=== PATIENT | female | born 1955 | race Caucasian/White ===

== ENCOUNTER → 2017-12-04 | Outpatient (CLI) | payer OTHER ==
[~2017-12-04] MED LIST: AMANTADINE 100100 MG PO; ASPIRIN325 PO; ATORVASTATIN CA40 MG PO; CYMBALTA60 MG PO; DECADRON4 MG PO; FISH OIL 1,001000 M2 PO; HYDROCHLOROTH12.5 M1 PO; IMITREX 25 MG T25 MG PO; LASIX 40 MG TAB40 M2 PO; LOPRESSOR25 PO; MIRALAX17 GM PO; NEURONTIN 300300 M1 PO; NORCO 10-325 T1 EACH PO; OMEPRAZOLE40 MG PO; OXYCODONE HCL 55 MG PO; POTASSIUM20 PO; REGLAN 10 MG TA10 MG PO; SEROQUEL 50 MG50 MG PO; SERTRALINE HCL50 MG PO; SYNTHROID75 MCG PO; TOPAMAX50 MG PO; TOPROL XL25 MG PO; VALIUM5 MG PO; VERAPAMIL E.R240 M1 PO; VITAMIN D1000 UNI1 PO; VITAMINC500 PO; VOLTAREN GEL 1100 G2 TOP; XANAX1 MG PO
== END ==
LOC: M.RAD 10:54
DX: S92.812A Other fracture of left foot, initial encounter for closed fracture (principal); X58.XXXA Exposure to other specified factors, initial encounter; Y93.89 Activity, other specified; Y92.89 Other specified places as the place of occurrence of the external cause; Y99.8 Other external cause status

== ENCOUNTER 2018-03-08 14:37 | Inpatient (IN) | payer OTHER ==
[~2018-03-08] VITALS: Ht 162.6 cm; Wt 119.7 kg
[2018-03-08 14:42] VITALS: BP 141/119
[2018-03-08 15:02] VITALS: BP 128/87
[2018-03-08 15:06] LABS: ABSOLUTE BASOPHILS 0.1 thou/uL (0.0-0.2); ABSOLUTE EOSINOPHILS 0.2 thou/uL (0.0-0.7); ABSOLUTE LYMPHOCYTES 2.6 thou/uL (0.8-5.3); ABSOLUTE MONOCYTES 0.5 thou/uL (0.0-1.2); ABSOLUTE NEUTROPHILS 3.4 thou/uL (1.6-8.1); EOSINOPHILS 3.6 %; HEMATOCRIT 36.8 % (37.0-47.0); HEMOGLOBIN 12.3 gm/dL (12.0-15.0); LYMPHOCYTES 37.7 %; MCH 30.3 pg (26.0-34.0); MCHC 33.4 g/dL (28.0-37.0); MCV 90.8 fL (80.0-100.0); MONOCYTES 7.3 %; MPV 6.8 fl. (7.2-11.1); NUCLEATED RBCS 0 /100WBC; PLATELET COUNT* 276 thou/uL (150-400); POLYS 50.4 %; RBC 4.05 mil/uL (4.20-5.00); RDW-CV 15.1 % (10.5-14.5); WBC 6.8 thou/uL (4.0-11.0)
[2018-03-08 15:14] LABS: ANION GAP 6 mmol/L (7-16); BUN 11 mg/dL (7-18); CALCIUM 8.8 mg/dL (8.5-10.1); CHLORIDE 105 mmol/L (98-107); CO2 28 mmol/L (21-32); CREATININE 0.9 mg/dL (0.6-1.3); GLUCOSE 108 mg/dL (70-99); POTASSIUM 3.6 mmol/L (3.5-5.1); SODIUM 139 mmol/L (136-145)
[2018-03-08 15:21] LABS: ALBUMIN 3.2 g/dL (3.4-5.0); ALKALINE PHOSPHATASE 73 U/L (46-116); SGOT 16 U/L (15-37); SGPT 30 U/L (30-65); TOTAL BILIRUBIN 0.3 mg/dL (<0.1-1.0); TOTAL PROTEIN 6.7 g/dL (6.4-8.2); TROPONIN-I LEVEL <0.06 ng/mL (<0.06)
[2018-03-08] MEDS ORDERED: XANAX1 MG PO ×2 (15:22→22:23)
[2018-03-08] MEDS ORDERED: ATORVASTATIN CA40 MG PO (15:23)
[2018-03-08] MEDS ORDERED: POTASSIUM20 PO (15:23)
[2018-03-08] MEDS ORDERED: NEURONTIN 300300 M1 PO (15:24)
[2018-03-08] MEDS ORDERED: OMEPRAZOLE40 MG PO (15:24)
[2018-03-08] MEDS ORDERED: VERAPAMIL E.R240 M1 PO (15:25)
[2018-03-08] MEDS ORDERED: LOPRESSOR25 PO (15:25)
[2018-03-08] MEDS ORDERED: SYNTHROID75 MCG PO (15:25)
[2018-03-08] MEDS ORDERED: SEROQUEL 50 MG50 MG PO (15:26)
[2018-03-08] MEDS ORDERED: AMANTADINE 100100 MG PO (15:26)
[2018-03-08] MEDS ORDERED: TOPAMAX50 MG PO (15:27)
[2018-03-08] MEDS ORDERED: SERTRALINE HCL50 MG PO (15:27)
[2018-03-08] MEDS ORDERED: CYMBALTA60 MG PO (15:27)
[2018-03-08] MEDS ORDERED: ASPIRIN325 PO (15:28)
[2018-03-08] MEDS ORDERED: LASIX 40 MG TAB40 M2 PO (15:28)
[2018-03-08] MEDS ORDERED: HYDROCHLOROTH12.5 M1 PO (15:28)
[2018-03-08] MEDS ORDERED: OXYCODONE HCL 55 MG PO (15:30)
[2018-03-08] MEDS ORDERED: VALIUM5 MG PO (15:31)
[2018-03-08] MEDS ORDERED: REGLAN 10 MG TA10 MG PO (15:31)
[2018-03-08] MEDS ORDERED: MIRALAX17 GM PO (15:32)
[2018-03-08] MEDS ORDERED: FISH OIL 1,001000 M2 PO (15:33)
[2018-03-08] MEDS ORDERED: VOLTAREN GEL 1100 G2 TOP (15:33)
[2018-03-08] MEDS ORDERED: VITAMIN D1000 UNI1 PO (15:33)
[2018-03-08] MEDS ORDERED: VITAMINC500 PO (15:33)
[2018-03-08 18:53] VITALS: BP 105/55
[2018-03-08 18:59] VITALS: BP 118/61
--- NOTE | 2018-03-08 19:35 | NUR ---
PT. ARRIVED TO UNIT AT APPROX. 1845. PT. A/OX4, VSS, MONITOR PLACED. PT. DENIES CURRENT PAIN EXCEPT HEADACHE. STATES SHE JUST FEELS "OFF" TODAY. ADMISSION HISTORY COMPLETED. NIH COMPLETED WITH SCORE OF 3. SWALLOW EVAL COMPLETED WITH NO DEFICIT NOTED. PT. ORIENTED TO ROOM/PROCEDURES. UPDATED ON PLAN OF CARE TO INCLUDE MRI. REPORT GIVEN TO NOC MANAS HARRIS TO COMPLETE ADMISSION PROCESS.
[2018-03-08 20:00] VITALS: BP 104/47
[2018-03-08 21:21] LABS: AMP/METHAMP Negative (Negative); BARBITURATES Negative (Negative); BENZODIAZEPINES POSITIVE (Negative); COCAINE Negative (Negative); METHADONE Negative (Negative); OPIATES POSITIVE (Negative); PCP Negative (Negative); THC Negative (Negative)
[2018-03-08 21:36] LABS: HEMOGLOBIN 11.8 gm/dL (12.0-15.0)
[2018-03-08 21:45] LABS: ALBUMIN 3.1 g/dL (3.4-5.0); CALCIUM 8.2 mg/dL (8.5-10.1); CREATININE 0.8 mg/dL (0.6-1.3); POTASSIUM 3.7 mmol/L (3.5-5.1); TOTAL BILIRUBIN 0.4 mg/dL (<0.1-1.0); TOTAL PROTEIN 6.3 g/dL (6.4-8.2)
[2018-03-08] MEDS ORDERED: TOPROL XL25 MG PO (22:25)
[2018-03-08] MEDS ORDERED: IMITREX 25 MG T25 MG PO (22:30)
[2018-03-08] MEDS ORDERED: NORCO 10-325 T1 EACH PO (22:31)
[2018-03-08] MEDS ORDERED: DECADRON4 MG PO (22:36)
[2018-03-09] VITALS: BP 107/44
[2018-03-09 04:00] VITALS: BP 107/63
--- NOTE | 2018-03-09 05:20 | NUR ---
PATIENT PARTIALLY PROGRESSING TOWARDS GOALS: NIH REMAINS 0-1 DUE TO PARTIAL SENSORY LOSS ON LEFT SIDE. PATIENT NOTED TO HAVE EPISODES OF FORGETFULNESS BUT REORIENTATES SELF AFTER A FEW MOMENTS OF THINKING. PATIENT'S HS MEDS THAT CAN CAUSE SEDATING EFFECTS HELD. HOURLY ROUNDING OBSERVED. CALL LIGHT WITHIN REACH
[2018-03-09 05:35] LABS: ABSOLUTE EOSINOPHILS 0.2 thou/uL (0.0-0.7); ABSOLUTE LYMPHOCYTES 2.7 thou/uL (0.8-5.3); ABSOLUTE MONOCYTES 0.6 thou/uL (0.0-1.2); ABSOLUTE NEUTROPHILS 2.8 thou/uL (1.6-8.1); BASOPHILS 0.4 %; EOSINOPHILS 3.4 %; HEMATOCRIT 34.6 % (37.0-47.0); HEMOGLOBIN 11.3 gm/dL (12.0-15.0); LYMPHOCYTES 42.8 %; MCH 29.9 pg (26.0-34.0); MCHC 32.8 g/dL (28.0-37.0); MCV 91.4 fL (80.0-100.0); MONOCYTES 8.9 %; MPV 7.1 fl. (7.2-11.1); NUCLEATED RBCS 0 /100WBC; PLATELET COUNT* 250 thou/uL (150-400); POLYS 44.5 %; RBC 3.79 mil/uL (4.20-5.00); WBC 6.3 thou/uL (4.0-11.0)
[2018-03-09 06:04] LABS: ANION GAP 7 mmol/L (7-16); BUN 13 mg/dL (7-18); CALCIUM 8.5 mg/dL (8.5-10.1); CHLORIDE 106 mmol/L (98-107); CO2 29 mmol/L (21-32); CREATININE 0.8 mg/dL (0.6-1.3); GLUCOSE 105 mg/dL (70-99); POTASSIUM 3.9 mmol/L (3.5-5.1); SODIUM 142 mmol/L (136-145)
[2018-03-09 06:21] LABS: SERUM ASSESSMENT CLEAR
[2018-03-09 06:22] LABS: CHOLESTEROL 178 mg/dL (<200); HDL CHOLESTEROL 36 mg/dL (>40); LDL CHOLESTEROL 92 mg/dL (<100); TC:HDL 4.9 Ratio (Not establshd); TRIGLYCERIDE 251 mg/dL (<150); VLDL 50 mg/dL (<40)
[2018-03-09 08:00] VITALS: BP 115/51
[2018-03-09 11:15] VITALS: BP 126/55
--- NOTE | 2018-03-09 12:46 | EKG ---
[place] [address] ELECTROCARDIOGRAM REPORT Name: NOHELIA ELIAS Room: [address] ADM IN .R.#: [id number] Admission: 03/08/18 Attend Phys: Vu Portillo MD Discharge: Date of : 57 Report #: [id number] THIS REPORT FOR: //name// [facility] ED Test Date: 2018-03-08 Test Time: 14:43:24 Pat Name: NOHELIA ELIAS Department: Room: [facility] Gender: F Ramp Service Agent: Cathy STEINBERG : 1955 Requested By: Mamadou Flores Order Number: [id number] MD: Daljit Chan Measurements Intervals [place] Rate: 79 P: 26 ND: 171 QRS: -15 QRSD: 94 T: 31 QT: 390 QTc: 448 Interpretive Statements Sinus rhythm Borderline left axis deviation Low voltage, precordial leads RSR' in V1 or V2, probably normal variant Abnormal T, consider ischemia, anterior leads No previous ECG available for comparison Electronically Signed On 03-09-2018 12:46:40 CDT by Daljit Chan [email or web address] <ELECTRONICALLY SIGNED> By: Daljit Chan MD, FACC 03/09/18 1246 1443 1443 Daljit Chan MD, FAC /EPI
--- NOTE | 2018-03-09 14:32 | NUR ---
INITIAL ASSESSMENT: Pt evaluated for d/c planning needs. Reviewed chart and spoke with nurse, PT and pt. Pt is alert and oriented. Pt lives in house with ex-. Pt has knee scooter, walker, cane and grab bars at home. Pt was hospitalized at [facility] in the past, and had home health after hospitalization. Pt does not recacll name of company. Pt plans on returning home on d/c from hospital. WIll remain available to assist as needed.
[2018-03-09 16:00] VITALS: BP 122/68
--- NOTE | 2018-03-09 18:54 | NUR ---
RECEIVED REPORT. ASSUMED CARE OF PT AROUND 0730. PT A&O X4 WITH SOME OCCASIONAL FORGETFULLNESS. ONCOLOGIST IN PLACE TRACING SR WITH NO CHANGES THIS SHIFT. VSS. O2 SAT 96% ON RA. NIH BRIEF SCALE SCORING 0 THIS SHIFT, BUT PT DID HAVE SOME SLIGHT SLURRING OF SPEECH THIS AM THAT HAS SINCE DISSIPATED. AM ASSESSMENT AND VITALS COMPLETED CHARTED. IV TO RIGHT FA INTACT AND SALINE LOCKED. PT EATING AND DRINKING WITHOUT ISSUE. PT UP WITH STANDBY ASSIST TO THE BATHROOM A FEW TIMES THIS SHIFT - PT VOIDING WITHOUT ISSUE. PT COMPLAINED OF HEADACHE PAIN THIS AM THAT WAS MANAGED WITH PO PAIN MEDICATION TO PT RELIEF. PT WAS VISITED THIS SHIFT BY HER GOOD FRIEND AND . NEURO WORK UP IN PROGRESS. PT SEEN BY NEUROLOGY. U/S CAROTIDS COMPLETED. ALL NEEDS MET AT THIS TIME. PT CURRENTLY WATCHING TV IN BED. CALL LIGHT IS WITHIN REACH. HOURLY ROUNDING PERFORMED. FALL PRECAUTIONS IN PLACE. WCTM FOR DURATION OF SHIFT.
[2018-03-09 20:00] VITALS: BP 150/73
[2018-03-09 21:06] LABS: GLYCOHEMOGLOBIN (HGB A1C) 5.7 % (4.8-5.6)
[2018-03-10] VITALS: BP 112/39
[2018-03-10 04:00] VITALS: BP 113/57
--- NOTE | 2018-03-10 06:50 | NUR ---
PATIENT APPEARS MORE ALERT THIS SHIFT AND LESS HESITATION WITH SPEECH. NIH REMAINS 0 THROUGHOUT SHIFT. PATIENT HAS RESTED WELL WITH PAIN RELIEF FROM PO MEDS AND ICE PACK. HOURLY ROUNDING OBSERVED. CALL LIGHT WITHIN REACH
[2018-03-10 08:00] VITALS: BP 117/63
[2018-03-10 12:00] VITALS: BP 126/59
[2018-03-10 16:00] VITALS: BP 124/54
[2018-03-10 16:40] VITALS: BP 124/54
--- NOTE | 2018-03-10 17:42 | NUR ---
RECEIVED REPORT. ASSUMED CARE OF PT AROUND 0730. PT A&O X4, DROWSY THIS AM, BUT BECAME MORE ALERT SHIFT PROGRESSED. VSS. O2 SAT 92% ON RA. AM ASSESSMENT AND VITALS COMPLETED CHARTED. COUNT TEAM MEMBER IN PLACE TRACING SR WITH NO CHANGES THIS SHIFT. PT HAS REPORTED HEADACHE PAIN AND RIGHT FOOT PAIN THAT HAS BEEN MANAGED WITH PO PAIN MEDICATION AND COLD PACKS, PT EXPERIENCED PARTIAL RELIEF. NIH BRIEF SCALE SCORE OF 1 THIS AM FOR DROWSINESS, SCORE REDUCED TO 0 SHIFT PROGRESSED. PT COMPLETED MRI THIS SHIFT. NEURO SIGNED OFF. PT EATING AND DRINKING WITHOUT ISSUE. ABLE TO HAVE BM THIS SHIFT. VOIDING WITHOUT ISSUE. DISCHARGE ORDERS RECEIVED. DISCHARGE COMPLETED DOCUMENTED. DISCHARGE SUMMARY GONE OVER WITH PT, PT COMMUNICATES UNDERSTANDING. PT AWARE OF FOLLOW UPS WITH PCP AND HER NEUROLOGIST. PT TO PERSUE ECHOCARDIOGRAM AN OUTPATIENT WITH HER PCP. DISCHARGE FULL NIH ASSESSMENT COMPLETED, PT SCORED A 1 FOR MILD DYSARTHRIA. ALL BELONGINGS PACKED AND READY TO SEND WITH THE PT. IV AND COUNT TEAM MEMBER REMOVED. PT CURRENTLY SITTING UP IN BED WAITING FOR HER RIDE. FALL PRECAUTIONS IN PLACE. CALL LIGHT IS WITHIN REACH, HOURLY ROUNDING PERFORMED. WCTM UNTIL PT LEAVES UNIT.
--- NOTE | 2018-04-08 12:29 | CON ---
[facility] [address] [place] [address] CONSULTATION Name: NOHELIA ELIAS Room: [address] IN M.R.#: [id number] Admission: 03/08/18 Attend Phys: Vu Portillo MD Discharge: 03/10/18 Date of : 57 Report #: [id number] THIS REPORT FOR: //name// CC: Vu Wright HISTORY OF PRESENT ILLNESS: The patient is a 62-year-old woman who was admitted from the Emergency Department after it was noted that she had slurring of her speech. The patient has been in physical therapy for rehabilitation after a right foot surgery done several weeks ago. She is walking with a cane or a walker. She had gone to therapy on the day of admission and it was noted that her speech was slurred. She states that she knew what she wanted to say and she could come up with the words pretty much, but the words were just slurred. This was not associated with any other neurological symptoms, for example headache or visual disturbances, no paresthesias of the face. She does have chronic pain in her right foot in the area of the previous surgery. The patient was noted to have slurred speech in the Emergency Department. 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 She denies ever having seizures or strokes in the past. She states that she does have high blood pressure and hyperlipidemia, but denies knowledge of diabetes, although this is contrary to other information from the chart. She does have depression, although she has not seen a psychiatrist, but does have an appointment for her first visit next week. The patient does have a long history of anxiety as well as depression and is on a lot of medications. She also is being treated for a thyroid condition. She has a history of migraine headaches and she is taking Topamax, but when asked if she was taking the Topamax for migraines, she was not sure why she was taking it. The patient is on numerous medications as listed. She is on alprazolam 1 mg t.i.d. for anxiety and had been given Valium by the orthopedic surgeon for muscle spasms, but she states that she has only taken about 5 Valium. She is on atorvastatin 40 mg, gabapentin 300 mg t.i.d., verapamil, metoprolol, Levothroid 75 mcg, Seroquel 50 mg at night, Cymbalta 60 mg daily, sertraline 50 mg daily, hydrochlorothiazide, Lasix, OxyIR 5, Reglan 10 mg b.i.d., diclofenac, amantadine 100 mg b.i.d. and Topamax. 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 The patient has seen Neurology at with severe right foot and leg pain and has been followed by Dr. Ramos at . Her primary care is Dr. Wright. The patient was admitted. She states that she got a good night's sleep last night, woke up feeling refreshed and she states that the slurred speech has [facility] [address] [place] [address] CONSULTATION Name: NOHELIA ELIAS Room: [address] IN M.R.#: [id number] Admission: 03/08/18 Attend Phys: Vu Portillo MD Discharge: 03/10/18 Date of : 57 Report #: [id number] resolved, although she is complaining of a bit of a headache at the present time. FAMILY HISTORY: The patient does not know her father. Her mother of complications of a motor vehicle accident. SOCIAL HISTORY: She is not a smoker. She has several children who are in good health. She does not use alcohol. REVIEW OF SYSTEMS: She denies systemic complaints of fever or chills. She denies visual disturbances or problems with hearing loss. She has no chest pain or palpitations. No shortness of breath or cough. She does complain of a lot of nausea for which she takes Reglan. She denies urinary problems. She complains of a lot of foot pain as well as leg pain and back pain. She complains of anxiety and depression as well. She denies easy bleeding or bruising or rashes. PHYSICAL EXAMINATION: VITAL SIGNS: Blood pressure 126/55, pulse 68, temperature 36.8. GENERAL APPEARANCE: The patient is an overweight woman, in no apparent distress, who appears her stated age. NECK: Supple. No carotid bruits are heard. EXTREMITIES: There is mild swelling of both feet at the ankles and there is a large well-healed scar about the right lower leg and foot. NEUROLOGIC: She is alert and oriented with normal memory and speech. On cranial nerve testing, the pupils are equally round and reactive. Extraocular movements are full without nystagmus. Visual campbell are full to confrontation. Facial sensation and mobility were normal. Tongue was large and red, but protruded normally. Motor testing revealed full power in her arms and legs with the exception of mild weakness of the right foot in the area of the surgery. There was a mild tremor of her arms outstretched. She had no rigidity or bradykinesia suggestive of Parkinson disease. Sensory testing was intact to light touch, pin and vibration. On coordination testing, she did rapid alternating movements well; however, her ujsxnx-ee-pnph testing was done slowly and somewhat clumsily bilaterally. She did better on bmzu-yi-voeq. Reflexes were 1+ at the knees, absent at the right ankle, trace at the left ankle. Toes were downgoing bilaterally. The patient was able to stand up. Her gait was wide based and antalgic, favoring the right foot. LABORATORY DATA: Initial CT scan of the head showed frontal atrophy bilaterally. The CT was done without contrast. No other abnormalities were noted. Lab tests showed hemoglobin of 11.3, hematocrit 34.6, white count 6300, platelet count 250,000, MCV 91.4. Sed rate 19. Her glucose was 115. Hemoglobin A1c is pending. Liver function tests were normal. CK was 33. Cholesterol 178, LDL 92, [place] 36[place] [address] CONSULTATION Name: NOHELIA ELIAS Room: [address]#: [id number] Admission: 03/08/18 Attend Phys: Vu Portillo MD Discharge: 03/10/18 Date of : 57 Report #: [id number] IMPRESSION: The patient had abrupt onset of slurred speech, not clearly aphasia. This has resolved and she is being now worked up for a transient ischemic attack. MRI and echocardiogram is pending. The carotid showed no significant changes. The issue is could this be polypharmacy as well. If the MRI and echocardiogram are unremarkable, then her primary care and prescribing physicians will be notified of the concern about her polypharmacy. <ELECTRONICALLY SIGNED> By: Gregg Pa MD 04/08/18 1229 1328 1825Sabouchra Pa MD /nt
== END 2018-03-10 17:55 | disposition home or self-care (01) | DRG 92 ==
LOC: M.ERS 14:37 → M.TBA-ER 16:10 → M.2W 16:10
PROVIDERS: Emergency Medicine Emergency Medical Services; ADMIT Internal Medicine
DX: G92 Toxic encephalopathy (principal); G45.9 Transient cerebral ischemic attack, unspecified; Z68.42 Body mass index [BMI] 45.0-49.9, adult; R47.81 Slurred speech; E66.01 Morbid (severe) obesity due to excess calories; F32.9 Major depressive disorder, single episode, unspecified; F41.9 Anxiety disorder, unspecified; G43.909 Migraine, unspecified, not intractable, without status migrainosus; E11.9 Type 2 diabetes mellitus without complications; G89.29 Other chronic pain; Z79.82 Long term (current) use of aspirin; Z79.899 Other long term (current) drug therapy

== ENCOUNTER → 2019-10-22 | Outpatient (CLI) | payer OTHER | LOC: M.CT 14:00 | DX: M19.071 Primary osteoarthritis, right ankle and foot (principal); Z98.1 Arthrodesis status; M48.00 Spinal stenosis, site unspecified ==

== ENCOUNTER 2019-12-12 12:08 | Inpatient (IN) | payer OTHER ==
--- NOTE | ~2019-12-12 | OP ---
[address] [place] [address] OPERATIVE REPORT Name: NOHELIA ELIAS Room: [address]#: [id number] Admission: 12/12/19 Attend Phys: Christianne Moss Discharge: 12/13/19 Date of : 57 Report #: [id number] THIS REPORT FOR: //name// cc: Jeancarlos Wright Steve T. 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 POSTOPERATIVE DIAGNOSES: 1. 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 PROCEDURE PERFORMED: 1. Right talonavicular arthrodesis. 2. Right calcaneocuboid arthrodesis. 3. Intraoperative physician-guided fluoroscopy less than 1 hour. SURGEON: Jessie Spear DO FRET SAW OPERATOR: Renny Carter DO ANESTHESIA: General and regional nerve block by Anesthesia. ESTIMATED BLOOD LOSS: 50 mL. SPECIMENS: None. DRAINS: None. COMPLICATIONS: None. CONDITION: Stable. DISPOSITION: PACU to Med/Surg. ANTIBIOTICS: 3 grams of Ancef IV preoperatively. [address] [place] [address] OPERATIVE REPORT Name: JADANOHELIA Christianne Room: [address]#: [id number] Admission: 12/12/19 Attend Phys: Christianne Moss Discharge: 12/13/19 Date of : 57 Report #: [id number] TOURNIQUET TIME: Approximately 90 minutes at 250 mmHg. IMPLANTS: Arthrex 5.0 mm cannulated headless screws x 2, nitinol staple x 2, 5 mL of AlloSync bone allograft. INDICATIONS: The patient is a very pleasant 64-year-old female who underwent a right flatfoot reconstruction with subtalar arthrodesis and flexor digitorum longus tendon transfer by a different physician approximately over a year ago. She has had continued pain with this ever since the surgery. She has also noticed continued and increasing forefoot abduction deformity. She had failed conservative therapies with anti-inflammatories, activity modification, shoewear modification, bracing, and despite these measures, continued to have significant right foot pain. X-rays and a CT scan confirmed successful fusion of the subtalar joint; however, she was noted to have continued talonavicular uncoverage and plantar flexion of the talus was seen on weightbearing x-rays. CT scan showed some arthritic change to the talonavicular as well as calcaneocuboid joint. Given the above findings and failed conservative therapies, I did recommend a right talonavicular and calcaneocuboid arthrodesis. The benefits, risks, complications and alternatives to this procedure were discussed with the patient in detail. These include but are not limited to bleeding, surgical site infection, neurovascular compromise, malunion, nonunion, hardware failure, recurrent deformity, continued pain, need for further surgery, DVT, PE as well as the inherent risks of anesthesia. The patient understands these risks and is agreeable to proceed. Consent was signed in the preoperative holding area and on the chart at the time of surgery. Operative site was marked. DESCRIPTION OF PROCEDURE: The patient was brought to the operating room and placed supine on the operating table. She was administered general anesthetic. A well-padded tourniquet was placed in the proximal portion of the right thigh. Right lower extremity was then sterilely prepped with ChloraPrep and allowed to dry for 3 minutes. This was then draped freely in the usual fashion. A timeout was performed confirming correct patient, site, procedure. Surgical site markings were identified and all in the room were in agreement. Procedure began with exsanguination of right lower extremity with an Esmarch and inflation of tourniquet to 250 mmHg. The medial side was exposed first. A new incision was made in the interval between the anterior tibialis and posterior tibialis tendon. This was carried through skin and subcutaneous tissues. Care was taken to protect the saphenous vein throughout the entirety of the procedure. The dissection was carried down to the level of the joint capsule. The talonavicular joint was then fully exposed with subperiosteal dissection. She was noted to have severe arthritic change to the talonavicular joint with little cartilage that remained. This cartilage was denuded with a series of curettes, osteotomes and subchondral plate was broken through again using osteotomes and a small K-wire was used to fenestrate the joint. After appropriate joint [facility] [address] [place] [address] OPERATIVE REPORT Name: NOHELIA ELIAS Room: [address] IN [place]#: [id number] Admission: 12/12/19 Attend Phys: Christianne Moss Discharge: 12/13/19 Date of : 57 Report #: [id number], we then turned our attention to the lateral side of the foot. The previous incision at the sinus tarsi was utilized and directing it towards the base of the fourth metatarsal. Dissection was carried through skin and subcutaneous tissues. Care was taken to protect the superficial peroneal nerve. The extensor digitorum brevis muscle belly was identified. This was then peeled dorsally off of the anterior aspect of the cuboid and calcaneus. The calcaneocuboid joint was then exposed, again utilizing subperiosteal dissection. The calcaneocuboid joint was prepared in the same fashion as the talonavicular joint. First, denuding cartilage with a curette and osteotome and then breaking through the subchondral plate utilizing a series of osteotomes and K-wires. After both joint preparation had taken place, a 5 mL of the AlloSync bone graft was placed across the joint surfaces. The joints were then reduced. X-rays confirmed appropriate reduction of the talonavicular joint with appropriate talonavicular coverage and yazdanism of her longitudinal arch. These were then held into place with K wires. The 2 K wires in the talonavicular joint were then measured, overdrilled and two 5.0 mm headless cannulated screws were placed across the talonavicular joint. X-rays confirmed appropriate hardware placement. We then turned our attention to the calcaneocuboid joint and a nitinol oliver were used across this joint holding the drill guide in the appropriate position. We drilled to the appropriate depth through the guide for each staple and two nitinol oliver were placed across the calcaneocuboid joint, were noted to have excellent compression across the calcaneocuboid joint and talonavicular joints. At this time, all provisional fixation K-wires were removed. X-rays were taken, which confirmed appropriate joint reduction and compression across the joints and hardware placement. We then irrigated the wounds with normal saline. Deep tissue was closed with 0 Vicryl suture, subcutaneous tissue closed with 3-0 Vicryl suture and skin reapproximated with 3-0 nylon. Tourniquet was let down at approximately 90 minutes. The wounds were then dressed with Xeroform, 4 x 4s, ABD, soft roll and a well-padded posterior and U-plaster splint was applied. The patient tolerated the procedure well without complications, transferred to PACU in stable condition. All needle and sponge counts were correct x 2 and I was present throughout all pertinent decision making aspects of the case. By: 1618 1652Aeleni Spear DO /nadege
[~2019-12-12 12:08] MED LIST changes: +COMPAZINE10 MG PO; +LYRICA150 MG PO; +VERAPAMIL ER120 MG PO
[2019-12-12 12:46] LABS: HEMOGLOBIN 13.4 gm/dL (12.0-15.0); MCH 29.5 pg (26.0-34.0); MCHC 33.6 g/dL (28.0-37.0); MCV 87.9 fL (80.0-100.0); MPV 7.7 fl. (7.2-11.1); RBC 4.54 mil/uL (4.20-5.00); RDW-CV 15.9 % (10.5-14.5); WBC 7.5 thou/uL (4.0-11.0)
[2019-12-12 12:54] LABS: CALCIUM 8.9 mg/dL (8.5-10.1); CREATININE 0.8 mg/dL (0.6-1.3); POTASSIUM 4.4 mmol/L (3.5-5.1)
--- NOTE | 2019-12-12 15:45 | EKG ---
[place] [address] ELECTROCARDIOGRAM REPORT Name: NOHELIA ELIAS Room: [facility]#: [id number] Admission: 12/12/19 Attend Phys: Jessie Spear DO Discharge: Date of : 57 Date of Service: 12/12/19 1245 Report #: [id number] THIS REPORT FOR: //name// [facility] Test Date: 2019-12-12 Test Time: 12:45:52 Pat Name: NOHELIA ELIAS Department: Room: Gender: Dietitian Teaching: : 1955 Requested By: Jessie Spear Order Number: [id number] Reading MD: Colin Sloan Measurements Intervals [place] Rate: 54 P: 23 [place]: 162 QRS: -25 QRSD: 96 T: 22 QT: 432 QTc: 410 Interpretive Statements Sinus rhythm Borderline left axis deviation Possible anterior infarct, age indeterminate Compared to ECG 03/08/2018 14:43:24 Myocardial infarct finding now present Possible ischemia still noted Electronically Signed On 12-12-2019 15:45:22 CDT by Colin Sloan [email or web address] <ELECTRONICALLY SIGNED> By: Colin Sloan MD, [facility] 12/12/19 1545 1245 1245 Colin Sloan MD, [facility] /EPI
[2019-12-12] MEDS ORDERED: ASPIRIN EC325 MG PO (17:11)
[2019-12-12] MEDS ORDERED: NORCO 5-325 TA1 EAC1 PO (17:13)
[2019-12-12] MEDS ORDERED: OXYCODONE HCL 55 MG PO (17:14)
[2019-12-12 18:54] VITALS: BP 119/95
[2019-12-12 20:25] VITALS: BP 135/59
[2019-12-13 04:50] LABS: HEMATOCRIT 39.1 % (37.0-47.0); HEMOGLOBIN 13.2 gm/dL (12.0-15.0)
[2019-12-13 05:30] VITALS: BP 124/69
[2019-12-13 08:15] VITALS: BP 120/87
[2019-12-13 13:39] VITALS: BP 120/87
[2019-12-13 16:05] VITALS: BP 120/87
== END 2019-12-13 15:55 | disposition home or self-care (01) | DRG 505 ==
LOC: M.SUR 12:08 → M.TBA 16:34 → M.ORTHSURG 18:25
PROVIDERS: Orthopaedic Surgery; ADMIT Internal Medicine; ATTEND Internal Medicine
PROC: 0SGH04Z Fusion of Right Tarsal Joint with Internal Fixation Device, Open Approach (ICD-10-PCS; principal; 2019-12-12)
DX: T84.293A Other mechanical complication of internal fixation device of bones of foot and toes, initial encounter (principal); Y82.8 Other medical devices associated with adverse incidents; Y83.8 Other surgical procedures as the cause of abnormal reaction of the patient, or of later complication, without mention of misadventure at the time of the procedure; E78.5 Hyperlipidemia, unspecified; E03.9 Hypothyroidism, unspecified; F41.9 Anxiety disorder, unspecified; K21.9 Gastro-esophageal reflux disease without esophagitis; I10 Essential (primary) hypertension; Z03.818 Encounter for observation for suspected exposure to other biological agents ruled out; Y92.89 Other specified places as the place of occurrence of the external cause; Z79.82 Long term (current) use of aspirin; Z79.891 Long term (current) use of opiate analgesic; Z79.899 Other long term (current) drug therapy

== ENCOUNTER 2020-01-01 12:50 | Inpatient (IN) | payer OTHER ==
[~2020-01-01] VITALS: Ht 162.6 cm; Wt 132.0 kg
[~2020-01-01 12:50] MED LIST changes: +ASPIRIN EC325 MG PO; +NORCO 5-325 TA1 EAC1 PO
[2020-01-01 12:51] VITALS: BP 132/62
[2020-01-01 13:22] LABS: ABSOLUTE BASOPHILS 0.1 thou/uL (0.0-0.2); ABSOLUTE EOSINOPHILS 0.1 thou/uL (0.0-0.7); ABSOLUTE LYMPHOCYTES 1.2 thou/uL (0.8-5.3); ABSOLUTE MONOCYTES 0.3 thou/uL (0.0-1.2); BASOPHILS 0.9 %; EOSINOPHILS 1.1 %; HEMATOCRIT 37.2 % (37.0-47.0); HEMOGLOBIN 12.3 gm/dL (12.0-15.0); LYMPHOCYTES 18.4 %; MCV 87.9 fL (80.0-100.0); MONOCYTES 5.2 %; MPV 8.4 fl. (7.2-11.1); NUCLEATED RBCS 0 /100WBC; PLATELET COUNT* 239 thou/uL (150-400); POLYS 74.4 %; RBC 4.23 mil/uL (4.20-5.00); RDW-CV 15.3 % (10.5-14.5); WBC 6.7 thou/uL (4.0-11.0)
[2020-01-01 13:49] LABS: ALBUMIN 3.3 g/dL (3.4-5.0); CALCIUM 8.6 mg/dL (8.5-10.1); CREATININE 1.1 mg/dL (0.6-1.3); POTASSIUM 3.4 mmol/L (3.5-5.1); TOTAL BILIRUBIN 0.6 mg/dL (<0.1-1.0); TOTAL PROTEIN 6.9 g/dL (6.4-8.2)
[2020-01-01 13:57] LABS: INR 1.1; PROTIME 11.6 Seconds (9.20-11.50)
[2020-01-01 14:22] LABS: URINE BILIRUBIN NEGATIVE (Negative); URINE BLOOD NEGATIVE (Negative); URINE CLARITY CLEAR; URINE COLOR YELLOW; URINE GLUCOSE-RANDOM NEGATIVE (Negative); URINE KETONES NEGATIVE (Negative); URINE LEUKOCYTES-REFLEX NEGATIVE (Negative); URINE NITRITE-REFLEX NEGATIVE (Negative); URINE PROTEIN NEGATIVE (Negative); URINE SPECIFIC GRAVITY 1.015 (1.005-1.030); URINE UROBILINOGEN 0.2 E.U./dl (0.2-1.0)
--- NOTE | 2020-01-01 16:55 | EKG ---
[place] [address] ELECTROCARDIOGRAM REPORT Name: NOHELIA ELIAS Room: [place] [address] ADM IN .R.#: [id number] Admission: 01/01/20 Attend Phys: Kim Zapata, Discharge: Date of : 57 Date of Service: 01/01/20 [facility] Report #: [id number] THIS REPORT FOR: //name// [facility] ED Test Date: 2020-01-01 Test Time: 13:00:55 Pat Name: NOHELIA ELIAS Department: Room: [facility] Gender: F Cylinder Sander Operator: DSJose : 1955 Requested By: John Garcia Order Number: [id number] Rosario MD: Christopher Mckeon Measurements Intervals [place] Rate: 81 P: 40 [place]: 170 QRS: -50 QRSD: 110 T: -58 QT: 425 QTc: 494 Interpretive Statements Pacemaker spikes or artifacts Sinus rhythm low voltage Left axis deviation Anterior infarct, age indeterminate Compared to ECG 12/12/2019 12:45:52 rate has increased Electronically Signed On 01-01-2020 16:55:29 CDT by Christopher Mckeon [email or web address] <ELECTRONICALLY SIGNED> By: Christopher Mckeon MD, [facility] 01/01/20 1655 1300 1300 Christopher Mckeon MD, [facility] /EPI
--- NOTE | 2020-01-01 16:56 | EKG ---
[place] [address] ELECTROCARDIOGRAM REPORT Name: NOHELIA ELIAS Room: [place] [address] ADM IN .R.#: [id number] Admission: 01/01/20 Attend Phys: Kim Zapata, Discharge: Date of : 57 Date of Service: 01/01/20 1316 Report #: [id number] THIS REPORT FOR: //name// [facility] ED Test Date: 2020-01-01 Test Time: 13:16:15 Pat Name: NOHELIA ARVIZUCARMELO Department: Room: [facility] Gender: F Tire Design Engineer: MATIAS : 1955 Requested By: John Garcia Order Number: [id number] MD: Christopher Mckeon Measurements Intervals [place] Rate: 80 P: 36 [place]: 175 QRS: -21 QRSD: 88 T: 6 QT: 407 QTc: 470 Interpretive Statements Sinus rhythm Borderline left axis deviation Probable anterior infarct, age indeterminate Baseline wander in lead(s) II,III,aVF Electronically Signed On 01-01-2020 16:55:59 CDT by Christopher Mckeon [email or web address] <ELECTRONICALLY SIGNED> By: Christpoher Mckeon MD, [facility] 01/01/20 1655 1316 1316 Christopher Mckeon MD, [facility] /EPI
[2020-01-01 17:24] VITALS: BP 146/77
[2020-01-01 18:00] VITALS: BP 141/90
[2020-01-01 20:00] VITALS: BP 133/67
[2020-01-02 00:27] VITALS: BP 124/68
[2020-01-02 04:00] VITALS: BP 130/84; BP 143/87
[2020-01-02 08:00] VITALS: BP 122/58
[2020-01-02 12:22] VITALS: BP 112/61
--- NOTE | 2020-01-02 14:04 | 2DMMODE ---
[place] [address] 2 D/M-MODE ECHOCARDIOGRAM Name: NOHELIA ELIAS Room: [address] [place] See#: [id number] Admission: 01/01/20 Attend Phys: Kim Zapata, Discharge: Date of : 57 Date of Service: 01/02/20 1403 Report #: [id number] THIS REPORT FOR: cc: Jeancarlos Wright,Christopher Ruano MD [facility] ~ APPROVED REPORT Study performed: 01/02/2020 10:22:31 EXAM: Comprehensive 2D, Doppler, and color-flow Echocardiogram Patient Location: In-Patient Room #: 208 Status: routine BSA: 2.26 HR: 78 bpm BP: 122/58 mmHg Rhythm: NSR Other Information Study Quality: Good Indications Pulmonary Embolism 2D Dimensions IVSd: 11.34 (7-11mm) LVOT Diam: 19.57 (18-24mm) LVDd: 45.05 mm PWd: 11.39 (7-11mm) Ascending Ao: 34.39 (22-36mm) LVDs: 33.67 (25-40mm) Aortic Root: 27.87 mm Volumes Left Atrial Volume (Systole) LA ESV Index: 23.50 mL/m2 Aortic Valve AoV Peak Addy.: 1.81 m/s AO Peak Gr.: 13.04 mmHg LVOT Max P.31 mmHg AO Mean Gr.: 7.21 mmHg LVOT Mean P.51 mmHg LVOT Max V: 0.91 m/s AO V2 VTI: 34.57 cm LVOT Mean V: 0.56 m/s MAGDA (VTI): 1.69 cm2 LVOT V1 VTI: 19.46 [place] [address] 2 D/M-MODE ECHOCARDIOGRAM Name: NOHELIA ELIAS Room: [address] [place] ..#: [id number] Admission: 01/01/20 Attend Phys: Kim Zapata, Discharge: Date of : 57 Date of Service: 01/02/20 1403 Report #: [id number] Mitral Valve E/A Ratio: 0.70 MV Decel. Time: 192.69 ms MV E Max Addy.: 0.62 m/s MV PHT: 55.88 ms MVA (PHT): 3.94 cm2 TDI E/Lateral E': 6.89 E/Medial E': 6.89 Medial E' Addy.: 0.09 m/s Lateral E' Addy.: 0.09 m/s Pulmonary Valve PV Peak Addy.: 0.93 m/s PV Peak Gr.: 3.45 mmHg Tricuspid Valve RAP Estimate: 5.00 mmHg TR Peak Gr.: 31.40 mmHg RVSP: 36.00 mmHg PA Pressure: 36.00 mmHg Left Ventricle The left ventricle is normal size. There is normal LV segmental wall motion. Mild concentric left ventricular hypertrophy. Left ventricular systolic function is normal. The left ventricular ejection fraction is within the normal range. LVEF is 55-60%. Grade I - abnormal relaxation pattern. Right Ventricle Right ventricle is dilated. Right ventricle is mildly hypokinetic. Atria The left atrium size is normal. Right atrium is dilated. Aortic Valve Mild aortic valve sclerosis. No aortic regurgitation is present. There is no aortic valvular stenosis. Mitral Valve The mitral valve is normal in structure. There is no mitral valve regurgitation noted. No evidence of mitral valve stenosis. Tricuspid Valve The tricuspid valve is normal in structure. Mild tricuspid regurgitation. estimated pa pressure 45 [place] [address] 2 D/M-MODE ECHOCARDIOGRAM Name: NOHELIA ELIAS Room: [address] [place] [facility]#: [id number] Admission: 01/01/20 Attend Phys: Kim Zapata, Discharge: Date of : 57 Date of Service: 01/02/20 1403 Report #: [id number] Pulmonic Valve Pulmonic valve is grossly normal in structure. There is no pulmonic valvular regurgitation. Great Vessels The aortic root is normal in size. IVC is normal in size and collapses >50% with inspiration. Pericardium There is no pericardial effusion. <Conclusion> Mild concentric left ventricular hypertrophy. LVEF is 55-60%. Right ventricle is dilated. Mild aortic valve sclerosis. Mild tricuspid regurgitation. estimated pa pressure 45 mm Hg <ELECTRONICALLY SIGNED> By: Christopher Mckeon MD, FACC 01/02/20 1403 140 140 Christopher Mckeon MD, FACC /INF
[2020-01-02 20:00] VITALS: BP 115/56
[2020-01-03] VITALS: BP 123/66
[2020-01-03 04:33] VITALS: BP 129/70
[2020-01-03 05:25] LABS: ABSOLUTE LYMPHOCYTES 2.8 thou/uL (0.8-5.3); ABSOLUTE MONOCYTES 0.3 thou/uL (0.0-1.2); ABSOLUTE NEUTROPHILS 3.1 thou/uL (1.6-8.1); BASOPHILS 0.4 %; EOSINOPHILS 0.5 %; HEMATOCRIT 32.1 % (37.0-47.0); HEMOGLOBIN 10.6 gm/dL (12.0-15.0); LYMPHOCYTES 44.5 %; MCH 29.3 pg (26.0-34.0); MCHC 33.2 g/dL (28.0-37.0); MCV 88.3 fL (80.0-100.0); MONOCYTES 5.6 %; MPV 8.5 fl. (7.2-11.1); NUCLEATED RBCS 0 /100WBC; PLATELET COUNT* 228 thou/uL (150-400); RBC 3.63 mil/uL (4.20-5.00); RDW-CV 15.7 % (10.5-14.5); WBC 6.2 thou/uL (4.0-11.0)
[2020-01-03 08:00] VITALS: BP 138/74
[2020-01-03] MEDS ORDERED: ELIQUIS5 MG PO (11:30)
[2020-01-03 13:36] VITALS: BP 123/60
[2020-01-03 14:36] VITALS: BP 123/60
== END 2020-01-03 16:30 | disposition home or self-care (01) | DRG 175 ==
LOC: M.ERS 12:50 → M.2W 16:24 → M.TBA-ER 16:24 → M.2W 17:40
PROVIDERS: Personal Emergency Response Attendant; Physician Assistant; ADMIT Internal Medicine; ATTEND Internal Medicine
DX: I26.99 Other pulmonary embolism without acute cor pulmonale (principal); J96.01 Acute respiratory failure with hypoxia; Z68.42 Body mass index [BMI] 45.0-49.9, adult; E66.01 Morbid (severe) obesity due to excess calories; I27.20 Pulmonary hypertension, unspecified; G47.30 Sleep apnea, unspecified; F41.9 Anxiety disorder, unspecified; Z20.828 Contact with and (suspected) exposure to other viral communicable diseases; Z79.82 Long term (current) use of aspirin; Z79.899 Other long term (current) drug therapy; Z99.81 Dependence on supplemental oxygen; Z98.1 Arthrodesis status

== ENCOUNTER 2020-11-22 19:46 | Emergency (ER) | payer OTHER ==
[~2020-11-22] VITALS: Ht 162.6 cm; Wt 90.7 kg
[~2020-11-22 19:46] MED LIST changes: +ELIQUIS5 MG PO
[2020-11-22 21:53] LABS: ABSOLUTE BASOPHILS 0.1 thou/uL (0.0-0.2); ABSOLUTE LYMPHOCYTES 1.7 thou/uL (0.8-5.3); ABSOLUTE MONOCYTES 0.4 thou/uL (0.0-1.2); ABSOLUTE NEUTROPHILS 4.9 thou/uL (1.6-8.1); BASOPHILS 0.7 %; EOSINOPHILS 0.5 %; HEMATOCRIT 40.4 % (37.0-47.0); HEMOGLOBIN 13.5 gm/dL (12.0-15.0); LYMPHOCYTES 24.4 %; MCH 28.8 pg (26.0-34.0); MCHC 33.6 g/dL (28.0-37.0); MCV 85.9 fL (80.0-100.0); MONOCYTES 5.2 %; MPV 7.5 fl. (7.2-11.1); NUCLEATED RBCS 0 /100WBC; PLATELET COUNT* 325 thou/uL (150-400); POLYS 69.2 %; RDW-CV 15.9 % (10.5-14.5); WBC 7.1 thou/uL (4.0-11.0)
[2020-11-22 21:57] LABS: CALCIUM 9.4 mg/dL (8.5-10.1); CREATININE 0.8 mg/dL (0.6-1.3); POTASSIUM 3.7 mmol/L (3.5-5.1)
[2020-11-22 21:58] LABS: BE -1.5 mmol/L (-2 to +3); PCO2 42.4 mmHg (35.0-45.0); pH 7.367 (7.340-7.450)
[2020-11-22 22:00] LABS: PO2 133.9 mmHg (75.0-100.0)
[2020-11-22 22:02] LABS: ALBUMIN 3.8 g/dL (3.4-5.0); MAGNESIUM 1.8 mg/dL (1.8-2.4); TOTAL BILIRUBIN 0.4 mg/dL (<0.1-1.0); TOTAL PROTEIN 7.8 g/dL (6.4-8.2)
[2020-11-22 22:05] LABS: URINE BILIRUBIN NEGATIVE (Negative); URINE BLOOD NEGATIVE (Negative); URINE CLARITY CLEAR; URINE COLOR YELLOW; URINE GLUCOSE-RANDOM NEGATIVE (Negative); URINE KETONES NEGATIVE (Negative); URINE LEUKOCYTES-REFLEX NEGATIVE (Negative); URINE NITRITE-REFLEX NEGATIVE (Negative); URINE PROTEIN NEGATIVE (Negative); URINE SPECIFIC GRAVITY 1.015 (1.005-1.030); URINE UROBILINOGEN 0.2 E.U./dl (0.2-1.0)
[2020-11-22 23:24] LABS: INFLUENZA A ANTIGEN Negative (Negative); INFLUENZA B ANTIGEN Negative (Negative)
[2020-11-23 00:34] VITALS: BP 166/64
--- NOTE | 2020-11-23 14:03 | EKG ---
[place] [address] ELECTROCARDIOGRAM REPORT Name: NOHELIA ELIAS Room: [facility]#: [id number] Admission: 11/22/20 Attend Phys: Discharge: 11/23/20 Date of : 57 Date of Service: 11/22/201955 Report #: [id number] THIS REPORT FOR: //name// 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: [place] : 1955 Requested By: Janki Mcintyre Order Number: [id number] MD: Colin Sloan Measurements Intervals [place] Rate: 66 P: 0 FL: 144 QRS: -36 QRSD: 163 T: -58 QT: 403 QTc: 423 Interpretive Statements Sinus rhythm Probable left atrial enlargement Nonspecific IVCD with LAD Baseline wander in lead(s) V2,V3,V4 Compared to ECG 01/01/2020 13:16:15 Intraventricular conduction delay now present R wave progression overthe right precordium has normalized Electronically Signed On 11-23-2020 14:03:10 CDT by Colin Sloan [email or web address] <ELECTRONICALLY SIGNED> By: Colin Sloan MD, [facility] 11/23/20 1403 55 55 Colin Sloan MD, [facility] /EPI
== END 2020-11-23 00:35 | disposition home or self-care (01) ==
LOC: M.ERS 19:46
PROVIDERS: Personal Emergency Response Attendant
DX: E87.2 Acidosis (principal); Z20.822 Contact with and (suspected) exposure to COVID-19; B34.9 Viral infection, unspecified; E86.0 Dehydration; R11.2 Nausea with vomiting, unspecified; J44.9 Chronic obstructive pulmonary disease, unspecified; F41.9 Anxiety disorder, unspecified; Z79.899 Other long term (current) drug therapy; Z79.82 Long term (current) use of aspirin